=== PATIENT | female | born 1990 | race Two or more races ===

== ENCOUNTER 2019-03-28 08:33 | Day surgery (SDC) | payer OTHER | END 2019-03-28 18:30 | disposition home or self-care (01) | LOC: CIR.AMB 08:33 | DX: N75.1 Abscess of Bartholin's gland (principal); N90.7 Vulvar cyst ==

== ENCOUNTER 2019-07-19 20:28 | Inpatient (IN) | payer OTHER ==
[~2019-07-19] VITALS: Ht 170.2 cm; Wt 95.7 kg
== END 2019-07-22 18:27 | disposition home or self-care (01) | DRG 832 ==
LOC: OBS/DEL 20:28 → LDR 07-20 10:57
PROVIDERS: ADMIT Obstetrics & Gynecology
PROC: BY4FZZZ Ultrasonography of Third Trimester, Single Fetus (ICD-10-PCS; principal; 2019-07-20)
PROC: 4A1HXCZ Monitoring of Products of Conception, Cardiac Rate, External Approach (ICD-10-PCS; 2019-07-20)
DX: O36.5930 Maternal care for other known or suspected poor fetal growth, third trimester, not applicable or unspecified (principal); O41.03X0 Oligohydramnios, third trimester, not applicable or unspecified; O41.8X30 Other specified disorders of amniotic fluid and membranes, third trimester, not applicable or unspecified

== ENCOUNTER → 2019-07-27 | Outpatient (CLI) | payer OTHER ==
[~2019-07-27] MED LIST: ASPIR 8181 MG PO; PRENATAL TABLE1 EAC1 PO
== END | disposition home or self-care (01) ==
LOC: PRENATAL 14:30
DX: O36.63X1 Maternal care for excessive fetal growth, third trimester, fetus 1 (principal); O34.211 Maternal care for low transverse scar from previous cesarean delivery; O41.00X0 Oligohydramnios, unspecified trimester, not applicable or unspecified

== ENCOUNTER 2019-08-03 11:20 | Inpatient (IN) | payer OTHER ==
[~2019-08-03] VITALS: Ht 170.2 cm; Wt 1.4 kg
[2019-08-03] MEDS ORDERED: ASPIR 8181 MG PO (12:17)
[2019-08-03] MEDS ORDERED: PRENATAL TABLE1 EAC1 PO (12:17)
== END 2019-08-07 10:52 | DRG 786 ==
LOC: LDR 11:20 → OB/GYN 11:20
PROVIDERS: ADMIT Obstetrics & Gynecology
PROC: 4A033R1 Measurement of Arterial Saturation, Peripheral, Percutaneous Approach (ICD-10-PCS; 2019-08-03)
PROC: 4A1HXCZ Monitoring of Products of Conception, Cardiac Rate, External Approach (ICD-10-PCS; 2019-08-04)
PROC: 10D00Z1 Extraction of Products of Conception, Low, Open Approach (ICD-10-PCS; principal; 2019-08-04 16:00)
DX: O82 Encounter for cesarean delivery without indication (principal); O60.14X0 Preterm labor third trimester with preterm delivery third trimester, not applicable or unspecified; O34.211 Maternal care for low transverse scar from previous cesarean delivery; O36.5930 Maternal care for other known or suspected poor fetal growth, third trimester, not applicable or unspecified; O42.013 Preterm premature rupture of membranes, onset of labor within 24 hours of rupture, third trimester; Z3A.35 35 weeks gestation of pregnancy; Z37.0 Single live birth

== ENCOUNTER → 2019-08-03 | Outpatient (CLI) | payer OTHER | END | disposition home or self-care (01) | LOC: PRENATAL 09:00 | DX: O36.5931 Maternal care for other known or suspected poor fetal growth, third trimester, fetus 1 (principal); O34.211 Maternal care for low transverse scar from previous cesarean delivery; O41.03X1 Oligohydramnios, third trimester, fetus 1; Z34.83 Encounter for supervision of other normal pregnancy, third trimester; P05.9 Newborn affected by slow intrauterine growth, unspecified ==

== ENCOUNTER 2019-08-19 12:11 | Inpatient (IN) | payer OTHER ==
[~2019-08-19] VITALS: Ht 170.2 cm; Wt 90.7 kg
--- NOTE | 2019-08-19 13:02 | NUR ---
SE RECIBE PTE. FEMENINA ALERTA CONCIENTE Y ORIENTADA QUE REFIERE DOLOR DE ESPALDA BAJA CON IRRADIACION PIERNA IZQUIERDA REF. LE COMENZO DOLOR HACE 5 COOK PTE. REFIERE LE HICIERON CESAREA EL . Y ESTABA TODO STACEY.
--- NOTE | 2019-08-19 16:01 | NUR ---
SE ORIENTA PTE SOBRE TX MEDICO EL CUAL REFIERE ENTENDER.SE LE EXRTRAEN MUESTRAS BAJO MEDIDAS ASEPTICAS,SE CANALIZA Y SE ADMINISTRA MEDICAMENTO TANIKA ORDEN MEDICA.SE NOTIFICA DOPPLER.
--- NOTE | 2019-08-19 20:26 | NUR ---
SE ORIENTA AL PACIENTE SOBRE MUESTRAS A SER COLECTADAS TANIKA ORDEN MEDICA. PACIENTE REFIERE ENTENDER. SE COLECTAN LAS MUESTRAS UTILIZANDO MEDIDAS ASEPTICAS Y SE ENVIAN AL LABORATORIO.
== END 2019-08-24 13:27 | disposition home or self-care (01) | DRG 301 ==
LOC: ER 12:11 → OB/GYN 22:44
PROVIDERS: ADMIT Obstetrics & Gynecology
PROC: B54CZZZ Ultrasonography of Left Lower Extremity Veins (ICD-10-PCS; principal; 2019-08-19)
DX: I82.4Z2 Acute embolism and thrombosis of unspecified deep veins of left distal lower extremity (principal); R31.0 Gross hematuria

== ENCOUNTER 2021-09-22 18:33 | Emergency (ER) | payer OTHER ==
[~2021-09-22] VITALS: Ht 170.2 cm; Wt 85.3 kg
[2021-09-22] MEDS ORDERED: CHILDREN'S ASPI81 MG (19:40)
[2021-09-22] MEDS ORDERED: SKELAXIN800 MG PO (22:23)
[2021-09-22] MEDS ORDERED: CELEBREX200MG PO (22:23)
== END 2021-09-23 00:04 | disposition home or self-care (01) ==
LOC: ER 18:33
DX: M62.838 Other muscle spasm (principal); M54.2 Cervicalgia

== ENCOUNTER 2022-03-18 08:14 | Outpatient (CLI) | payer OTHER ==
[~2022-03-18 08:14] MED LIST changes: +CELEBREX200MG PO; +CHILDREN'S ASPI81 MG; +SKELAXIN800 MG PO
== END 2022-03-18 09:43 | disposition home or self-care (01) ==
LOC: PRENATAL 08:14
PROVIDERS: ATTEND Obstetrics & Gynecology Maternal & Fetal Medicine
DX: O36.80X0 Pregnancy with inconclusive fetal viability, not applicable or unspecified (principal); O34.219 Maternal care for unspecified type scar from previous cesarean delivery; Z3A.13 13 weeks gestation of pregnancy

== ENCOUNTER 2022-05-03 08:17 | Outpatient (CLI) | payer OTHER | END 2022-05-03 09:20 | disposition home or self-care (01) | LOC: PRENATAL 08:17 | PROVIDERS: ATTEND Obstetrics & Gynecology Maternal & Fetal Medicine | DX: O35.0XX0 Maternal care for (suspected) central nervous system malformation in fetus, not applicable or unspecified (principal); O35.3XX0 Maternal care for (suspected) damage to fetus from viral disease in mother, not applicable or unspecified; O34.219 Maternal care for unspecified type scar from previous cesarean delivery; Z3A.20 20 weeks gestation of pregnancy ==

== ENCOUNTER 2022-06-28 09:18 | Outpatient (CLI) | payer OTHER | END 2022-06-28 11:00 | disposition home or self-care (01) | LOC: PRENATAL 09:18 | PROVIDERS: ATTEND Obstetrics & Gynecology Maternal & Fetal Medicine | DX: O26.849 Uterine size-date discrepancy, unspecified trimester (principal); O36.5990 Maternal care for other known or suspected poor fetal growth, unspecified trimester, not applicable or unspecified; O34.219 Maternal care for unspecified type scar from previous cesarean delivery; Z3A.28 28 weeks gestation of pregnancy ==

== ENCOUNTER 2022-08-12 10:57 | Outpatient (CLI) | payer OTHER | END 2022-08-12 12:30 | disposition home or self-care (01) | LOC: PRENATAL 10:57 | PROVIDERS: ATTEND Obstetrics & Gynecology Maternal & Fetal Medicine | DX: O26.849 Uterine size-date discrepancy, unspecified trimester (principal); O36.8199 Decreased fetal movements, unspecified trimester, other fetus; O36.5990 Maternal care for other known or suspected poor fetal growth, unspecified trimester, not applicable or unspecified; O34.219 Maternal care for unspecified type scar from previous cesarean delivery; Z3A.34 34 weeks gestation of pregnancy ==

== ENCOUNTER 2022-08-31 14:09 | Outpatient (CLI) | payer OTHER | END 2022-08-31 16:31 | disposition home or self-care (01) | LOC: PRENATAL 14:09 | PROVIDERS: ATTEND Obstetrics & Gynecology Maternal & Fetal Medicine | DX: O26.849 Uterine size-date discrepancy, unspecified trimester (principal); O36.8199 Decreased fetal movements, unspecified trimester, other fetus; O36.5990 Maternal care for other known or suspected poor fetal growth, unspecified trimester, not applicable or unspecified; O34.219 Maternal care for unspecified type scar from previous cesarean delivery ==

== ENCOUNTER 2022-09-10 08:15 | Inpatient (IN) | payer OTHER ==
[~2022-09-10] VITALS: Ht 170.2 cm; Wt 2.7 kg
[2022-09-10] MEDS ORDERED: ATABEX DHA 200200 MG PO (09:23)
[2022-09-17] MEDS ORDERED: IBUPROFEN800 MG PO (09:56)
== END 2022-09-17 13:06 | disposition home or self-care (01) | DRG 785 ==
LOC: O/R 09-15 07:12 → OB/GYN 09-15 08:15
PROVIDERS: ADMIT Obstetrics & Gynecology; ATTEND Obstetrics & Gynecology
PROC: 0UB70ZZ Excision of Bilateral Fallopian Tubes, Open Approach (ICD-10-PCS; 2022-09-15)
PROC: 4A1HXCZ Monitoring of Products of Conception, Cardiac Rate, External Approach (ICD-10-PCS; 2022-09-15)
PROC: 10D00Z1 Extraction of Products of Conception, Low, Open Approach (ICD-10-PCS; principal; 2022-09-15 14:30)
DX: O34.211 Maternal care for low transverse scar from previous cesarean delivery (principal); Z30.2 Encounter for sterilization; Z3A.39 39 weeks gestation of pregnancy; Z37.0 Single live birth; Z20.822 Contact with and (suspected) exposure to COVID-19